=== PATIENT | female | born 1985 | race Caucasian/White ===

== ENCOUNTER 2018-06-03 21:17 | Emergency (ER) | payer BC ==
[~2018-06-03] VITALS: Ht 154.9 cm; Wt 49.9 kg
[2018-06-03 21:20] VITALS: BP_SYST 107
[2018-06-03] MEDS ORDERED: MORPHINE 4 MG/ML INJ. SYRINGE IM ONE (21:30)
[2018-06-03] MEDS ORDERED: DIPH-TET-PERTUS Vaccine 0.5 ML VIAL (ADACEL) I.M. ONE (21:30)
[2018-06-03] MEDS ORDERED: LIDOCAINE 2%, 20 ML MDV ONE (22:04)
[2018-06-03] MEDS ORDERED: AMOXICILLIN/CLAVULANATE POTASSIUM 875 MG TABLET PO ONE (22:30)
[2018-06-03] MEDS ORDERED: HYDROcodone/ACETAMIN 5-325 MG TAB (NORCO/ VICODIN) PO ONE (23:15)
[2018-06-03 23:54] VITALS: BP_SYST 122
== END 2018-06-03 23:54 | disposition home or self-care (01) ==
LOC: SED 21:17
DX: S01.511A Laceration without foreign body of lip, initial encounter (principal); W54.0XXA Bitten by dog, initial encounter; Y93.89 Activity, other specified; Y92.89 Other specified places as the place of occurrence of the external cause; Y99.8 Other external cause status
CPT/HCPCS: 12013; 90471; 90715; 96372; 99283; J2001; J2270

== ENCOUNTER 2019-09-27 19:56 | Emergency (ER) | payer BC ==
[2019-09-27 20:18] VITALS: BP_SYST 113
[2019-09-27] MEDS ORDERED: BACITRACIN ZINC 15 GM TOPICAL OINTMENT TP ONE (22:30)
[2019-09-27] MEDS ORDERED: BACITRACIN 1 GM OINT TP ONE (22:44)
[2019-09-27 22:50] VITALS: BP_SYST 113
== END 2019-09-27 22:50 | disposition home or self-care (01) ==
LOC: SED 19:56
DX: S01.111A Laceration without foreign body of right eyelid and periocular area, initial encounter (principal); V29.9XXA Motorcycle rider (driver) (passenger) injured in unspecified traffic accident, initial encounter; Y93.89 Activity, other specified; Y92.89 Other specified places as the place of occurrence of the external cause; Y99.8 Other external cause status
CPT/HCPCS: 99283